=== PATIENT | male | born 1960 | race Caucasian/White ===

== ENCOUNTER 2020-02-24 11:07 | Outpatient (CLI) | payer BC, SELFPAY ==
--- NOTE | ~2020-02-24 | CT_ITS ---
EXAMINATION: CT abdomen pelvis wo con DATE: 02/24/2020 11:46 INDICATION: Bilateral flank pain. Gross hematuria. TECHNIQUE: Computed tomography (CT) of the abdomen and pelvis was performed without intravenous contr ast. Automated exposure control and iterative reconstruction technique were employed. The dose-length product was 1488.76 mGy-cm. COMPARISON: CT abdomen and pelvis 02/18/2017 FINDINGS: The visualized portions of the lung bases demonstrate mild atelectasis. A calcified right l elliott nodule is consistent with old granulomatous disease. No pleural effusion. The heart size is sandeep l. No pericardial effusion. There is diffuse hepatic steatosis. The gallbladder, spleen, pancreas, ad renal glands, and left kidney are normal. There is a 12 mm cyst in right kidney. There is no urolithi asis. The prostate is moderately enlarged. There is diverticulosis of the colon without evidence of d iverticulitis. There are no dilated loops of bowel. The appendix is normal. There are no pathological ly enlarged lymph nodes. There is no free intraperitoneal fluid. There is prominent fat in the inguin al canals that may be hernias. There is severe lower lumbar spondylosis. IMPRESSION: 1. No pulmonary embolus. 2. Diffuse hepatic steatosis. Reviewed, dictated and finalized at location B.
[2020-02-24 11:56] LABS: Hematocrit 40.2 % (42.0-52.0); Hemoglobin 13.6 g/dL (14.0-18.0); Mean Corpuscular HGB Conc 33.8 g/dl (32-36); Mean Corpuscular Volume 94.6 fl (80-100); Mean Platelet Volume 9.6 fl (7.4-10.4); Platelet Count Result 244 k/mm3 (150-375); Red Blood Count 4.25 M/mm3 (4.6-6.20); Red Cell Distribution Width 13.2 % (11.5-14.5); White Blood Count 13.2 K/mm3 (4.5-10.0)
[2020-02-24 12:12] LABS: Alanine Aminotransferase 29 U/L (4-50); Albumin Level 3.8 g/dL (3.5-5.1); Alkaline Phosphatase 55 U/L (38-126); Anion Gap 6 mmol/L (8-16); Aspartate Amino Transferase 24 U/L (17-59); Bilirubin,Total 0.5 mg/dL (0.2-1.3); Blood Urea Nitrogen 12 mg/dL (9-20); Calcium 8.8 mg/dL (8.4-10.2); Carbon Dioxide 22 mmol/L (22-30); Chloride 105 mmol/L (98-107); Estimated Glomerular Filt Rate > 60; Glucose 98 mg/dL (75-110); Potassium 4.6 mmol/L (3.4-5.0); Sodium 133 mmol/L (137-145)
[2020-02-24 13:53] LABS: Prostate Specific Antigen 11.5 ng/mL (< OR = 4.0)
== END 2020-02-24 11:08 | disposition home or self-care (01) ==
PROVIDERS: PCP Internal Medicine; Visit Provider Internal Medicine
DX: Z12.5 Encounter for screening for malignant neoplasm of prostate (principal); R10.9 Unspecified abdominal pain; R31.9 Hematuria, unspecified; R50.9 Fever, unspecified; K76.0 Fatty (change of) liver, not elsewhere classified
CPT/HCPCS: 36415; 74176; 80053; 84153; 85027; G0103

== ENCOUNTER 2020-07-19 13:47 | Outpatient (CLI) | payer BC, SELFPAY ==
[2020-07-19 15:09] LABS: SARS-CoV-2 Ag Negative (Negative)
[2020-07-21 19:31] LABS: SARS-CoV-2 RNA PCR Negative
== END 2020-07-19 13:48 | disposition home or self-care (01) ==
LOC: CHSLAB 13:52
PROVIDERS: PCP Internal Medicine; Visit Provider Internal Medicine
DX: Z20.822 Contact with and (suspected) exposure to COVID-19 (principal)
CPT/HCPCS: 87426; C9803; U0003

== ENCOUNTER → 2021-11-05 16:05 | Outpatient (REF) | payer BC, SELFPAY | LOC: ANHLAB 16:05 | PROVIDERS: PCP Internal Medicine; Visit Provider Nurse Practitioner | DX: L82.1 Other seborrheic keratosis (principal) | CPT/HCPCS: 88305 ==